=== PATIENT | male | born 1955 ===

== ENCOUNTER 2016-09-30 17:19 | Inpatient (IN) | payer OTHER ==
--- NOTE | ~2016-09-30 | OP ---
Record Of Operation [facility] [address] [place]. [address] NAME: GÓMEZ BARNETT : 53 STATUS : ADM IN [facility]#: [id number] AGE: 61 ADM/REG DATE : 09/30/16 MR#: [id number] REPORT SERV DATE: 09/30/16 DICTATED BY: MARINA BORRERO DATE: 09/30/16 REPORT STATUS : Draft TRANSCRIBED BY: MODL DATE: 09/30/16 DATE OF PROCEDURE: 09/30/2016 CENTRAL VENOUS LINE INSERTION REASON FOR INSERTION: Cardiogenic shock and need for better central venous access and hemodynamic monitoring and for medication administrations. CONSENT: Written and verbal from family. PROCEDURE IN DETAIL: Mr. Barnett was already premedicated with both sedatives and paralytics and on the mechanical ventilator as part of hypothermia protocol. After a being admitted for a STEMI earlier today, family gave written and verbal consent for central venous line insertion and he was positioned in the usual sterile fashion. A [id number] ultrasound was used to visualize the right internal jugular vein which was easily collapsible and a finder needle was used to access the vein with withdrawal of dark red blood. A guidewire was advanced to a depth of approximately 7 cm. Using Seldinger technique, a dilator was passed to a depth of approximately 4 cm. Subsequently, a triple-lumen Arrow Blue catheter 15 cm was advanced over the guidewire after making a small crush with the scalpel and advanced to a depth of approximately 14 cm and secured to the skin with suture material. There was positive blood return and easily flushed all ports. A followup chest x-ray was requested. ESTIMATED BLOOD LOSS: Less than 1 mL. IMMEDIATE COMPLICATIONS: None. SHAILESH/PARDEEP Marina Borrero MD / [id number] CC: Marcelo Haney Jr., M.D.
--- NOTE | ~2016-09-30 | HP ---
History And Physical [id number] [place]. [address] NAME: HUMBERTO VEGA : 53 STATUS : ADM IN [facility]#: [id number] AGE: 61 ADM/REG DATE : 09/30/16 MR#: [id number] REPORT SERV DATE: 09/30/16 DICTATED BY: BOYD BROOKS JR. DATE: 09/30/16 REPORT STATUS : Draft TRANSCRIBED BY: MODL DATE: 09/30/16 DATE OF ADMISSION: 09/30/2016 CHIEF COMPLAINT: Chest pain with VFib arrest. HISTORY OF PRESENT ILLNESS: Humberto Vega is a 61-year-old, white male, who is morbidly obese. He has known ischemic heart disease for at least 10 years. He has intermittent lack of followup. The patient developed chest pain at home for 1-2 hours. He finally took a nitroglycerin and then had a pulseless Vfib arrest. EMS was called and on arrival, the patient was pulseless and VFib arrest. The patient underwent cardioversion x8 with ACLS resuscitation for at least 20 minutes prior to restoring a pulse. The patient had difficult intubation secondary to his morbid obesity while at [facility]. The patient had intermittent ventricular tachycardia and prolonged resuscitative efforts. On arrival, the patient was intubated, unarousable, without sedation. The patient had no purposeful movements or reaction to pain. He had persistent ST elevation. On EKG, he had frothy sputum in his ET tube. PAST MEDICAL HISTORY: Includes coronary artery disease, status post prior WV and prior PCI. He has a history of hypertension, type 2 diabetes, morbid obesity with sleep apnea. ALLERGIES: PENICILLIN. CURRENT MEDICATIONS: Unknown secondary to clinical state. SOCIAL HISTORY: Unknown secondary to clinical state. FAMILY HISTORY: Unknown secondary to clinical state. REVIEW OF SYSTEMS: Unknown secondary to clinical state. PHYSICAL EXAMINATION: VITAL SIGNS: Blood pressure was 128/103, heart rate 88, and respirations 16. GENERAL: A morbidly obese male, who is intubated with frothy-pink and red ET tube secretions. HEENT: Anicteric. No scleral injection. No oral lesions. NECK: No JVD. Supple. No bruits. LUNGS: A few scattered rhonchi. CARDIOVASCULAR: A regular rhythm with ectopy and very distant heart sounds. ABDOMEN: Soft, nontender. Normoactive bowel sounds. No hepatosplenomegaly. EXTREMITIES: 1 to 2+ edema. SKIN: No visible rashes. NEURO/PSY: Normal affect, alert and oriented x 3. EKG: Anterolateral ST-elevation WV. History And Physical [address] [address] NAME: HUMBERTO VEGA : 53 STATUS : ADM IN [facility]#: [id number] AGE: 61 ADM/REG DATE : 09/30/16 MR#: [id number] REPORT SERV DATE: 09/30/16 DICTATED BY: BOYD BROOKS JR. DATE: 09/30/16 REPORT STATUS : Draft TRANSCRIBED BY: MODL DATE: 09/30/16 MEDICAL DECISION MAKIN. Anterior WV with VFib cardiac arrest and prolonged resuscitation. The patient will be taken emergently to the catheterization laboratory for coronary angiography for possible percutaneous intervention. We will perform a cooling protocol. The patient's prognosis is grim for a possibility of neurologic injury. 2. Diabetes. We will employ a sliding scale insulin protocol and ask for Critical Care assistance. 3. Respiratory status paced since in acute respiratory failure. He is intubated. I will consult Pulmonary/Critical Care. FABIO/PARDEEP Boyd Brooks Jr., M.D. / [id number] CC: Boyd Brooks Jr., M.D.
--- NOTE | ~2016-09-30 | DS ---
Discharge Summary [place] [address] [place]. [address] NAME: HUMBERTO BARNETT : 53 STATUS : DIS IN PAT#: [id number] AGE: 61 ADM/REG DATE : 09/30/16 MR#: [id number] REPORT SERV DATE: 10/01/16 DICTATED BY: BOYD HANEY JR. DATE: 10/01/16 REPORT STATUS : Draft TRANSCRIBED BY: MODSheila DATE: 10/01/16 ADMISSION DATE: 09/30/2016 DISCHARGE DATE: 10/01/2016 SUMMARY: DATE OF : 09/30/2016. DISCHARGE DIAGNOSES: 1. Ventricular fibrillation arrest. 2. Anterolateral ST-elevation myocardial infarction. 3. Anoxic brain injury. 4. Morbid obesity. 5. Hypertension. 6. Mixed hyperlipidemia. 7. Obstructive sleep apnea. 8. History of coronary stent implantation. PROCEDURES: 09/30/2016, coronary angiography with drug-eluting stent placement to the ostium of the LAD. HOSPITAL COURSE: Humberto Barnett is a 61-year-old white male with known coronary artery disease, who is morbidly obese. He developed severe precordial chest pain at home, took sublingual nitroglycerin, and then had a VFib arrest. He had prolonged resuscitation of over 30 minutes and eventually his sinus rhythm was maintained at [facility], and the patient was transferred for code STEMI protocol. Catheterization was performed with recurrent ventricular tachycardia during the procedure necessitating IV amiodarone. The patient was found to have an ostial occluded LAD with severe systolic dysfunction and an LVEDP in the mid 30s. The patient had successful percutaneous angioplasty and drug-eluting stent placement to the ostium of the LAD. He was transferred to the CCU under ventilatory support and a cooling protocol. Around 10 p.m., the patient developed VFib arrest, ACLS protocol was employed. Despite aggressive measures, the patient was not resuscitated and he was declared . CAUSE OF : 1. Anterolateral ST-elevation myocardial infarction. 2. Acute systolic heart failure with shock. 3. VFib arrest. 4. Anoxic brain injury. FABIO/PARDEEP Boyd Gonzalez Discharge Summary [address] [place]. [address] NAME: HUMBERTO BARNETT : 53 STATUS : DIS IN PAT#: [id number] AGE: 61 ADM/REG DATE : 09/30/16 MR#: [id number] REPORT SERV DATE: 10/01/16 DICTATED BY: BOYD HANEY JR. DATE: 10/01/16 REPORT STATUS : Draft TRANSCRIBED BY: MODL DATE: 10/01/16 Lyndon Freire M.D. / [id number] CC: Boyd Haney Jr., M.D.
--- NOTE | ~2016-09-30 | CN ---
Consultation Report [facility] [address] [facility] [place]. [address] NAME: GÓMEZ BARNETT : 53 STATUS : ADM IN PAT#: [id number] AGE: 61 ADM/REG DATE : 09/30/16 MR#: [id number] REPORT SERV DATE: 09/30/16 DICTATED BY: MARLYN BORRERO DATE: 09/30/16 REPORT STATUS : Draft TRANSCRIBED BY: MODL DATE: 09/30/16 DATE OF CONSULTATION: Pulmonary Critical Care Code Blue Response Note DATE OF CODE: 09/30/2016. Code Blue was fired on Gómez Barnett on 09/30/2016 in CCU bed 3 at 2153 hours. ICU staff was already present in the room and I was actually just outside the room. His initial rhythm was ventricular fibrillation, which appeared to be fairly wide-complex. ACLS was initiated and code cart was already in the room from earlier in the shift. CPR was continued and one amp of epinephrine was given. Immediately upon recognition of ventricular arrhythmia and at first pulse check, there was ventricular fibrillation on the monitor and he was defibrillated with 200 joules. Another compressor began chest compressions and another amp of epinephrine was given as well as a sodium bicarbonate. On second pulse check at 2157 hours, persistent ventricular fibrillation on the monitor, which at this point was more fine. He was defibrillated again and another amp of epinephrine was given and CPR was restarted. He underwent three more rounds of drugs compressions, received a total of 2 amps of sodium bicarbonate and an amp of calcium gluconate. On final pulse check at 2204 hours, he was in persistent very fine ventricular fibrillation and was defibrillated with 300 joules and underwent one additional round of chest compressions and on final pulse check at 2206 hours, he remained in very fine ventricular fibrillation and time of was called after telephone consultation with Dr. Haney from Cardiology. His family who had gathered in the waiting room by this time were updated and all questions were answered. certificate was completed. Dr. Haney will complete the discharge summary. SHAILESH/PARDEEP Marlyn Borrero MD / [id number] CC: Marcelo Haney Jr., M.D.
--- NOTE | ~2016-09-30 | CN ---
Consultation Report [facility] [address] [facility] [place]. [address] NAME: GÓMEZ BARNETT : 53 STATUS : ADM IN [facility]#: [id number] AGE: 61 ADM/REG DATE : 09/30/16 MR#: [id number] REPORT SERV DATE: 09/30/16 DICTATED BY: MARLYN BORRERO DATE: 09/30/16 REPORT STATUS : Draft TRANSCRIBED BY: MODL DATE: 09/30/16 PULMONARY AND CRITICAL CARE MEDICINE CONSULTATION DATE OF CONSULTATION: 09/30/2016 REASON FOR CONSULTATION: Assistance with management of ventilation and hypothermia protocol, status post STEMI, minimal additional history is available due to his acuity and lack of family members. Evidently, he has been down at home for at least 20 minutes. When EMS arrived, he was noted to be in pulseless ventricular fibrillation. He underwent a total of eight defibrillations with ACLS duration lasting 20 to 25 minutes. Due to his body habitus, he was a very difficult airway requiring multiple attempts to intubate and there was significant trauma during these attempts. He was initially seen by Dr. Haney at our facility after being transferred from [facility] Emergency Department where initially was transported and decision was made to move forward with left heart catheterization where they found an occluded ostial LAD, which was treated with PTCA drug-eluting stent implantation. His left ventricular ejection fraction was around 25% with an LVEDP of around 35. He has severe left ventricular systolic dysfunction and actually has a longstanding history of ischemic cardiomyopathy for at least 10 years. He was brought to the CCU following cardiac catheterization and stent implantation for hypothermia protocol. Since his arrest, he has not been conscious; however, he does breathe over the ventilator. We are consulted to assist with medical management. PAST MEDICAL HISTORY: Limited availability of knowledge based on his obtundation and acuity. Coronary artery disease, status post previous MT and prior PCI, hypertension, type 2 diabetes, morbid obesity with sleep apnea. SURGICAL HISTORY: Unknown. SOCIAL AND FAMILY HISTORY: Unknown. ALLERGIES: PENICILLIN, BASED ON OLD RECORDS. HOME MEDICATIONS: Family is planning to bring list, but is thus far unavailable. REVIEW OF SYSTEMS: Limited secondary to his clinical state. His family is not available at the bedside during my evaluation. PHYSICAL EXAMINATION: VITAL SIGNS: Blood pressure 121/72, heart rate is 79, respiratory rate is 16 on mechanical ventilation, he is afebrile, oxygen saturations 100% on 100% FiO2. GENERAL: The patient is a morbidly obese male, who appears to be chronically ill. He is intubated and sedated. HEENT: He has an endotracheal tube in place with copious amount of bright red blood Consultation Report [facility] [address] [place]. [address] NAME: GÓMEZ BARNETT : 53 STATUS : ADM IN PAT#: [id number] AGE: 61 ADM/REG DATE : 09/30/16 MR#: [id number] REPORT SERV DATE: 09/30/16 DICTATED BY: MARLYN BORRERO DATE: 09/30/16 REPORT STATUS : Draft TRANSCRIBED BY: MODL DATE: 09/30/16 emanating from it. His tongue is markedly edematous and actually projecting from the mouth with some ecchymosis. There is some bright red blood oozing from the corner of the mouth on the left. Ears and nose are unremarkable. He has poor oral dentition. Moist oral mucosa. NECK: Supple with copious redundant soft tissue due to his morbid obesity and he has retrognathia. CHEST: He has symmetric chest rise. Coarse breath sounds bilaterally with basilar crackles and a few transmitted sounds in the upper airway. HEART: S1, S2. Brisk cap refill in distal extremities with some ectopy on the monitor. ABDOMEN: Obese, soft, nondistended with positive bowel sounds in all four quadrants and no appreciable peritoneal signs. Feeding tube is placed in the mouth. : Lockwood catheter is indwelling and draining translucent yellow urine. EXTREMITIES: Without clubbing or cyanosis. He has some pitting pretibial edema bilaterally. LYMPHATIC: Unremarkable. NEUROLOGIC: Limited. He has no spontaneous limb movements and does not respond to verbal or painful stimulus. He does over breathe the ventilator with a rate of around 22, pulling adequate tidal volumes. PSYCHIATRIC: Unable to assess. DIAGNOSTIC DATA: Personal review of diagnostic workup, the only information available in the tydy system from today is blood gas which showed pH 7.21, pCO2 of 58, PO2 of 194, base excess of -6, and bicarb of 22.5. His cardiac cath report was reviewed showing occluded ostial LAD treated with PTCA and drug-eluting stent implantation. Chronically occluded codominant RCA collateralized via the circumflex, severe LV dysfunction with an ejection fraction of 25%, and left ventricular end-diastolic pressure of 35. V-fib arrest with prolonged resuscitation and recurrent ventricular tachycardia is noted on the clinical history of the cath report. Additional records of [facility] are evidently somewhere in the labeling associate and are being brought up to the CCU shortly. IMPRESSION: 1. Acute hypoxemic respiratory failure, status post ventricular tachycardia caused by ST- elevation myocardial infarction leading to ultimately a ventricular fibrillation cardiac arrest, status post eight defibrillations, and prolonged ACLS. 2. ST-elevation myocardial infarction as above, occluded ostial LAD, status post drug- eluting stent implantation. 3. Suspected anoxic brain injury due to prolonged downtime during resuscitative efforts by EMS. 4. Respiratory acidosis. 5. Coronary artery disease with known ischemic cardiomyopathy for at least 10 years. 6. Past medical history of hypertension, type 2 diabetes, morbid obesity with sleep apnea, and penicillin allergy. PLAN: 1. Lung protective ventilation strategy. 2. Hypothermia protocol. Consultation Report [address] [address] NAME: GÓMEZ BARNETT : 53 STATUS : ADM IN [facility]#: [id number] AGE: 61 ADM/REG DATE : 09/30/16 MR#: [id number] REPORT SERV DATE: 09/30/16 DICTATED BY: MARLYN BORRERO DATE: 09/30/16 REPORT STATUS : Draft TRANSCRIBED BY: PARDEEP DATE: 09/30/16 3. Status post PTCA with drug-eluting stent placement at the labeling associate. 4. Drugs per protocol for amiodarone infusion. 5. Monitor electrolytes and correct as needed. 6. Monitor renal function closely and hydrate as appropriate. 7. Once hypothermia protocol has been completed, we will need a detailed neurologic assessment in the setting of concern for profound anoxic brain injury. 8. Obtain additional history and medical records as well as review [facility] records. 9. He will need a surface echo in a day or two to assess left ventricular ejection fraction. 10.We will place central venous line for improve venous access and transduce his femoral art line for invasive hemodynamic monitoring. 11.He is a full code at this point. Case was discussed with Dr. Haney at length both by telephone as well as at the bedside. Approximately 75 minutes of critical care time excluding performance of bedside procedures, uninterrupted assessing and stabilizing Mr. Barnett this evening. We appreciate the opportunity to assist with his care. Please call with questions. SHAILESH/PARDEEP Marlyn Borrero MD / [id number] CC: Marcelo Haney Jr., M.D.
[2016-09-30 20:15] LABS: CARBOXYHEMOGLOBIN 0.3 % (0-3); HCO3 (ACTUAL BICARBONATE) 22.5 MEQ/L (23-27); HEMOBLOGIN CONTENT 13.8 G/DL (14-18); INSTRUMENT SERIAL # 35151; METHEMOGLOBIN 0.6 % (0-3); MODE CMV; O2 CONTENT 19.4 VOL% (18-24); OPERATOR ID 31061; PCO2 (CO2 TENSION) 58 MMHG (35-45); PO2 (O2 TENSION) 194 MMHG (79-93); SAMPLE Arterial; TIDAL VOLUME 600 ML; pH 7.21 (7.37-7.43)
[2016-09-30 21:09] LABS: BASOPHILS 0.1 %; BASOPHILS ABSOLUTE 0.02 10/3/uL (0.0-0.16); EOSINOPHILS 0.1 %; EOSINOPHILS ABSOLUTE 0.02 10/3/uL (0.0-0.53); HEMATOCRIT 41.5 % (40.0-51.0); HEMOGLOBIN 13.1 g/dL (13.6-17.8); IMMATURE GRANULOCYTES 0.8 %; IMMATURE GRANULOCYTES ABSOLUTE 0.15 10/3/uL (0.0-0.11); LYMPHOCYTES 12.6 %; LYMPHOCYTES ABSOLUTE 2.42 10/3/uL (0.67-4.30); MEAN CORPUS HGB CONC 31.6 g/dL (32.0-36.0); MEAN CORPUSCULAR VOLUME 91.8 fL (80-100); MONOCYTES ABSOLUTE 0.76 10/3/uL (0.21-1.20); NEUTROPHILS 82.4 %; NEUTROPHILS ABSOLUTE 15.86 10/3/uL (2.02-8.40); PLATELET COUNT 257 10/3/uL (150-400); RBC DISTRIBUTION WIDTH 14.9 % (12.0-16.0); RED CELL COUNT 4.52 10/6/uL (4.7-6.1); WHITE BLOOD CELLS 19.2 10/3/uL (4.5-10.5)
[2016-09-30 21:12] LABS: MANUAL DIFF NO %
[2016-09-30 21:28] LABS: BUN (BLOOD UREA NITROGEN) 25 MG/DL (6-23); CALCIUM, SERUM 7.7 MG/DL (8.5-10.4); CHLORIDE, SERUM 101 MMOL/L (96-112); CO2 (CARBON DIOXIDE) 22 MMOL/L (24-34); CREATININE 1.79 MG/DL (0.70-1.30); GFR AFRICAN AMERICAN 46 ML/MIN (>=60); GFR NON AFRICAN AMERICAN 40 ML/MIN (>=60); GLUCOSE, SERUM 319 MG/DL (60-99); SODIUM, SERUM 141 MMOL/L (135-148)
[2016-09-30 21:29] LABS: POTASSIUM, SERUM 3.7 MMOL/L (3.5-5.3)
== END 2016-10-01 06:42 | disposition expired | DRG 246 ==
LOC: SSU2 17:19 → CCU 19:55
PROVIDERS: Internal Medicine Cardiovascular Disease
PROC: 027034Z Dilation of Coronary Artery, One Artery with Drug-eluting Intraluminal Device, Percutaneous Approach (ICD-10-PCS; principal; 2016-09-30)
PROC: 5A1935Z Respiratory Ventilation, Less than 24 Consecutive Hours (ICD-10-PCS; 2016-09-30)
PROC: 05HM33Z Insertion of Infusion Device into Right Internal Jugular Vein, Percutaneous Approach (ICD-10-PCS; 2016-09-30)
PROC: B543ZZA Ultrasonography of Right Jugular Veins, Guidance (ICD-10-PCS; 2016-09-30)
PROC: B2151ZZ Fluoroscopy of Left Heart using Low Osmolar Contrast (ICD-10-PCS; 2016-09-30)
PROC: B2111ZZ Fluoroscopy of Multiple Coronary Arteries using Low Osmolar Contrast (ICD-10-PCS; 2016-09-30)
PROC: 4A023N7 Measurement of Cardiac Sampling and Pressure, Left Heart, Percutaneous Approach (ICD-10-PCS; 2016-09-30)
PROC: 0BH17EZ Insertion of Endotracheal Airway into Trachea, Via Natural or Artificial Opening (ICD-10-PCS; 2016-09-30)
DX: I21.09 ST elevation (STEMI) myocardial infarction involving other coronary artery of anterior wall (principal); J96.01 Acute respiratory failure with hypoxia; I49.01 Ventricular fibrillation; I50.21 Acute systolic (congestive) heart failure; G93.1 Anoxic brain damage, not elsewhere classified; I47.2 Ventricular tachycardia; E87.2 Acidosis; E66.01 Morbid (severe) obesity due to excess calories; I25.10 Atherosclerotic heart disease of native coronary artery without angina pectoris; I46.9 Cardiac arrest, cause unspecified; E78.2 Mixed hyperlipidemia; E11.9 Type 2 diabetes mellitus without complications; G47.33 Obstructive sleep apnea (adult) (pediatric); R57.0 Cardiogenic shock; I25.2 Old myocardial infarction; Z95.5 Presence of coronary angioplasty implant and graft; Z88.1 Allergy status to other antibiotic agents
CPT/HCPCS: 31720; 80048; 82805; 83605; 83735; 84100; 85025; 87040; 87641; 92950; 93458; 94002; 94770; A9270-GY; C1725; C1769; C1874; C1887; C1894; C9460; C9606; J0282; J0583; J2250; J3010; Q9967